=== PATIENT | female | born 1940 | race African-American/Black ===

== ENCOUNTER → 2017-02-04 | Outpatient (CLI) | payer MEDICARE, MEDICAID ==
[~2017-02-04] MED LIST: ASPI-1035 PO; MAGN400C PO; METO50TA5 PO; OLME20TA14 PO; PANT40TA4 PO; ROSU20TA PO; SITA100T6 PO
== END | disposition home or self-care (01) ==
LOC: MAMMO 10:47
PROVIDERS: ATTEND Internal Medicine Nephrology
DX: Z12.31 Encounter for screening mammogram for malignant neoplasm of breast (principal)
CPT/HCPCS: G0202

== ENCOUNTER 2020-03-31 15:49 | Inpatient (IN) | payer MEDICARE, OTHER, MEDICAID ==
[~2020-03-31] VITALS: Ht 165.1 cm; Wt 77.3 kg
[~2020-03-31 15:49] MED LIST changes: -ASPI-1035 PO; +ASPI-1497 PO; +CLON0.1T MT; +COLC0.6C3 MT; +GLIP5TAB12 MT; +LOSA100T32 MT; +METO-539 PO; -METO50TA5 PO; +OLME20TA13 PO; -OLME20TA14 PO; -ROSU20TA PO; +ROSU20TA2 PO; +SITA100T11 PO; -SITA100T6 PO
[2020-03-31 17:53] LABS: CHLORIDE 108 mEq/L (98-107)
[2020-03-31 18:06] LABS: HEMATOCRIT. 37.3 % (36.0-48.0); HEMOGLOBIN. 12.3 g/dL (12.0-16.0); MEAN CORPUSCULAR HEMOGLOBIN 28.4 pg (28.0-32.0); MEAN CORPUSCULAR VOLUME 86.3 fL (81.0-99.0); MEAN PLATELET VOLUME 10.3 fl (7.4-10.4); PLATELET 143 x1000/uL (130-400); RED BLOOD CELL COUNT 4.32 mill/uL (4.2-5.4); RED CELL DISTRIBUTION WIDTH 15.6 % (11.6-14.6)
[2020-03-31] MEDS ORDERED: HYDRALAZINE HCL 10MG TABLET PO ONE (18:45)
[2020-03-31 19:38] LABS: PLATELET ESTIMATE NORMAL
[2020-03-31] MEDS ORDERED: LABETALOL 5MG/ML SYR 20 MG/4 ML SYRINGE IV ONE (21:45)
[2020-03-31] MEDS ORDERED: ACETAMINOPHEN 325MG TABLET PO PRN (22:30)
[2020-03-31] MEDS ORDERED: HYDRALAZINE 20MG/ML VIAL IV PRN (22:30)
[2020-03-31] MEDS ORDERED: ONDANSETRON HCL 4MG/2ML INJ IV PRN (22:30)
[2020-03-31] MEDS ORDERED: HYDROCODONE/ACETAMINOPHEN 10/325MG TABLET PO PRN (22:30)
[2020-03-31] MEDS ORDERED: GUAIFENESIN 200MG/10ML SUGAR FREE UDC PO PRN (22:30)
[2020-03-31] MEDS ORDERED: MAGNESIUM/ALUMINUM HYDROXIDE/SIMETHICONE 30ML UDC PO PRN (22:30)
[2020-03-31] MEDS ORDERED: DEXTROSE 50% WATER 50ML SYRINGE IV PRN (22:30)
[2020-03-31] MEDS ORDERED: LORAZEPAM 2MG/ML CPJ IV PRN (22:30)
[2020-03-31] MEDS ORDERED: IPRATROPIUM/ALBUTEROL 0.5-3(2.5)MG/3ML NEB NEB PRN (22:30)
[2020-03-31] MEDS ORDERED: MORPHINE SULFATE 2 MG/ML CPJ (NOT FOR IM USE) IV PRN (22:30)
[2020-03-31] MEDS ORDERED: DOCUSATE SODIUM 100MG CAPSULE PO PRN (22:30)
[2020-03-31] MEDS ORDERED: NA PHOS,M-B/NA PHOS,DI-BA ENEMA 118ML PR PRN (22:30)
[2020-03-31] MEDS ORDERED: DIPHENHYDRAMINE 50MG/ML VIAL IV PRN (22:30)
[2020-04-01] VITALS (24 sets, daily range): BP systolic 107–213; BP diastolic 53–98
[2020-04-01] MEDS ORDERED: NICARDIPINE 50 MG in SODIUM CHLORIDE 0.9% 230 ML IV PRN (00:15)
[2020-04-01] MEDS: ENOXAPARIN 30MG/0.3ML SYR SUBCUT SCH ×2 (00:56→20:29)
[2020-04-01] MEDS ORDERED: SODIUM POLYSTYRENE SULFONATE 15 G/60 ML BOT PO NR (02:00)
[2020-04-01] MEDS: CLONIDINE 0.1MG TABLET PO PRN ×2 (02:25→12:16)
[2020-04-01] MEDS ORDERED: AMLODIPINE 10MG TABLET PO SCH (03:00)
[2020-04-01] MEDS: METOPROLOL TARTRATE 50MG TABLET PO NR ×2 (03:00→03:42)
[2020-04-01] MEDS: AMLODIPINE 10MG TABLET PO SCH ×2 (03:00→03:42)
[2020-04-01] MEDS: HYDRALAZINE HCL 50MG TABLET PO SCH ×3 (05:32→22:18)
[2020-04-01] MEDS: BLOOD SUGAR DIAGNOSTIC STRIP TEST SCH ×4 (05:43→20:29)
[2020-04-01] MEDS: INSULIN LISPRO 100 UNITS/ML SUBCUT SCH ×4 (06:46→20:30)
[2020-04-01] MEDS: SODIUM CHLORIDE 0.9% INJ 3ML FLUSH IVF SCH ×3 (06:46→22:18)
[2020-04-01 07:31] LABS: CHLORIDE 108 mEq/L (98-107)
[2020-04-01 07:40] LABS: CREATINE KINASE MB FRACTION 1.5 ng/mL (0.5-3.6)
[2020-04-01 07:42] LABS: LDL CHOLESTEROL 212 mg/dL (5-100)
[2020-04-01 07:43] LABS: CREATINE KINASE 90 IU/L (26-192)
[2020-04-01 07:44] LABS: HDL CHOLESTEROL 52 mg/dL (40-59); T4 FREE 1.22 ng/dL (0.76-1.46)
[2020-04-01 07:57] LABS: HEMOGLOBIN. 12.7 g/dL (12.0-16.0); MEAN CORPUSCULAR VOLUME 85.6 fL (81.0-99.0); PLATELET 180 x1000/uL (130-400); RED BLOOD CELL COUNT 4.55 mill/uL (4.2-5.4); RED CELL DISTRIBUTION WIDTH 15.5 % (11.6-14.6)
[2020-04-01 09:32] LABS: T4 FREE 1.25 ng/dL (0.76-1.46)
[2020-04-01] MEDS ORDERED: DICL50TA7 PO (10:34)
[2020-04-01] MEDS ORDERED: ALEN70TA68 PO (10:34)
[2020-04-01] MEDS ORDERED: CARV25TA47 PO (10:34)
[2020-04-01] MEDS ORDERED: HYDR-4134 PO (10:34)
[2020-04-01 16:04] LABS: PLATELET ESTIMATE NORMAL
[2020-04-01 16:16] LABS: CREATINE KINASE 110 IU/L (26-192)
[2020-04-01 16:17] LABS: CREATINE KINASE MB FRACTION 1.6 ng/mL (0.5-3.6)
[2020-04-01] MEDS: ATORVASTATIN CALCIUM 20MG TABLET PO SCH (20:29)
[2020-04-01] MEDS: METOPROLOL TARTRATE 25MG TABLET PO SCH (20:29)
[2020-04-01 22:33] LABS: CLARITY URINE CLEAR (CLEAR); COLOR URINE YELLOW (YELLOW); KETONES URINE NEGATIVE (NEGATIVE); LEUKOCYTE ESTERASE URINE NEGATIVE (NEGATIVE); NITRITE URINE NEGATIVE (NEGATIVE); OCCULT BLOOD URINE NEGATIVE (NEGATIVE); PROTEIN URINE TRACE (NEGATIVE); SPECIFIC GRAVITY URINE 1.008 (1.005-1.030); UROBILINOGEN URINE 0.2 E.U./dL (0.2-1.0)
[2020-04-02] VITALS (12 sets, daily range): BP systolic 131–178; BP diastolic 51–84
[2020-04-02] MEDS: CLONIDINE 0.1MG TABLET PO PRN (00:48)
[2020-04-02] MEDS: HYDRALAZINE HCL 50MG TABLET PO SCH ×3 (06:22→22:23)
[2020-04-02] MEDS: SODIUM CHLORIDE 0.9% INJ 3ML FLUSH IVF SCH ×3 (06:22→21:17)
[2020-04-02] MEDS: BLOOD SUGAR DIAGNOSTIC STRIP TEST SCH ×4 (06:40→21:00)
[2020-04-02] MEDS: INSULIN LISPRO 100 UNITS/ML SUBCUT SCH ×4 (06:41→21:00)
[2020-04-02 07:19] LABS: HEMATOCRIT. 32.8 % (36.0-48.0); HEMOGLOBIN. 10.7 g/dL (12.0-16.0); MEAN CORPUSCULAR HEMOGLOBIN 27.9 pg (28.0-32.0); MEAN CORPUSCULAR VOLUME 85.6 fL (81.0-99.0); MEAN PLATELET VOLUME 10.6 fl (7.4-10.4); PLATELET 124 x1000/uL (130-400); RED BLOOD CELL COUNT 3.83 mill/uL (4.2-5.4); RED CELL DISTRIBUTION WIDTH 15.5 % (11.6-14.6)
[2020-04-02] MEDS: AMLODIPINE 10MG TABLET PO SCH (08:38)
[2020-04-02] MEDS: METOPROLOL TARTRATE 25MG TABLET PO SCH ×2 (08:38→21:16)
[2020-04-02 11:40] LABS: PLATELET ESTIMATE SLIGHTLY DECREASED
[2020-04-02] MEDS: ATORVASTATIN CALCIUM 20MG TABLET PO SCH (21:16)
[2020-04-02] MEDS: ENOXAPARIN 30MG/0.3ML SYR SUBCUT SCH (21:16)
[2020-04-02 23:24] LABS: CREATININE URINE (RAW) 38.8 mg/dl
[2020-04-03] VITALS: BP 149/67
[2020-04-03 04:00] VITALS: BP 161/65
[2020-04-03] MEDS: HYDRALAZINE HCL 50MG TABLET PO SCH (05:21)
[2020-04-03] MEDS: INSULIN LISPRO 100 UNITS/ML SUBCUT SCH ×2 (05:23→12:05)
[2020-04-03] MEDS: SODIUM CHLORIDE 0.9% INJ 3ML FLUSH IVF SCH (05:23)
[2020-04-03] MEDS: BLOOD SUGAR DIAGNOSTIC STRIP TEST SCH ×2 (05:23→11:45)
[2020-04-03 08:00] VITALS: BP 178/70
[2020-04-03] MEDS: METOPROLOL TARTRATE 25MG TABLET PO SCH (08:36)
[2020-04-03] MEDS: AMLODIPINE 10MG TABLET PO SCH (08:36)
[2020-04-03 09:29] LABS: HEMATOCRIT. 36.1 % (36.0-48.0); HEMOGLOBIN. 11.9 g/dL (12.0-16.0); MEAN CORPUSCULAR HEMOGLOBIN 28.2 pg (28.0-32.0); MEAN CORPUSCULAR VOLUME 85.4 fL (81.0-99.0); MEAN PLATELET VOLUME 10.2 fl (7.4-10.4); PLATELET 142 x1000/uL (130-400); RED BLOOD CELL COUNT 4.23 mill/uL (4.2-5.4); RED CELL DISTRIBUTION WIDTH 15.3 % (11.6-14.6)
[2020-04-03 10:45] LABS: PLATELET ESTIMATE NORMAL
[2020-04-03 11:53] VITALS: BP 155/60
[2020-04-03 13:19] VITALS: BP 155/60
== END 2020-04-03 14:05 | disposition home or self-care (01) | DRG 304 ==
LOC: ER 15:49 → 5WST 21:43 → EDBEDREQTM 21:46 → EDBEDREQ 21:46 → ENRESERV 22:06
PROVIDERS: ADMIT Internal Medicine; ATTEND Internal Medicine
DX: I16.0 Hypertensive urgency (principal); N17.0 Acute kidney failure with tubular necrosis; N18.4 Chronic kidney disease, stage 4 (severe); I12.9 Hypertensive chronic kidney disease with stage 1 through stage 4 chronic kidney disease, or unspecified chronic kidney disease; E11.649 Type 2 diabetes mellitus with hypoglycemia without coma; I25.10 Atherosclerotic heart disease of native coronary artery without angina pectoris; E11.22 Type 2 diabetes mellitus with diabetic chronic kidney disease; E78.00 Pure hypercholesterolemia, unspecified; E78.5 Hyperlipidemia, unspecified; E87.5 Hyperkalemia; E78.1 Pure hyperglyceridemia; Z79.899 Other long term (current) drug therapy; Z90.49 Acquired absence of other specified parts of digestive tract
CPT/HCPCS: 36415; 76770; 80048; 80053; 80061; 81003; 82550; 82553; 82575; 82962; 83036; 83880; 84439; 84443; 84484; 85025; 85379; 93005; 93970; 96374; 99285; J0360; J1650; J1815; J3490

== ENCOUNTER → 2021-02-23 | Outpatient (CLI) | payer MEDICARE, OTHER ==
[~2021-02-23] MED LIST changes: +ALEN70TA79 PO; +CARV25TA47 PO; +HYDR-4134 PO; -PANT40TA4 PO; +PANT40TA51 PO
== END | disposition home or self-care (01) ==
LOC: MRI 09:27
PROVIDERS: ATTEND Internal Medicine Nephrology
DX: M19.012 Primary osteoarthritis, left shoulder (principal); M75.112 Incomplete rotator cuff tear or rupture of left shoulder, not specified as traumatic; M25.812 Other specified joint disorders, left shoulder; M25.512 Pain in left shoulder
CPT/HCPCS: 73221